=== PATIENT | female | born 1965 | race Caucasian/White ===

== ENCOUNTER 2021-02-05 14:15 | Emergency (ER) | payer OTHER ==
[~2021-02-05 14:15] MED LIST: FIORICET1 EACH PO; INDERAL LA80 MG PO; LOW-OGESTREL-21 EACH PO; MOTRIN600 MG PO; MULTIVITAMINS1 EAC1 PO; PAMELOR50 MG PO; PHENERGAN25 M1 PO; TOPAMAX50 MG PO; VALSARTAN-HCTZ1 EAC1 PO
[2021-02-05 18:52] LABS: BASOPHIL 0.5 % (0-2); EOSINOPHIL 1.9 % (0-5); HCT 40.6 % (37.0-47.0); HGB 13.1 g/dl (12.5-16.0); LYMPHOCYTE 45.8 % (15-48); MCH 31.6 pg (25.0-31.0); MCHC 32.3 g/dL (32.0-36.0); MCV 98.1 fL (78.0-100.0); MONOCYTE 7.5 % (0-12); MPV 9.8 fL (6.0-9.5); NEUTROPHIL 43.8 % (41-80); NRBC 0; PLT 290 K/uL (150-400); RBC 4.14 M/uL (4.20-5.40); WBC 8.6 K/uL (4.0-10.5)
[2021-02-05 18:58] LABS: BILIRUBIN NEGATIVE (NEGATIVE); BLOOD NEGATIVE Ery/uL (NEGATIVE); CLARITY CLEAR (CLEAR); COLOR YELLOW (YELLOW); GLUCOSE (U) NORMAL (NORMAL); LEUKOCYTES NEGATIVE Leu/uL (NEGATIVE); NITRITE NEGATIVE (NEGATIVE); PROTEIN NEGATIVE (NEGATIVE); UROBILINOGEN 0.2 mg/dL (0.2-1.0)
[2021-02-05 19:11] LABS: ALBUMIN 3.4 g/dL (3.4-5.0); BILIRUBIN - TOTAL 0.3 mg/dL (0.2-1.0); BUN/CREAT RATIO (CALC) 11.9 RATIO; CREATININE 0.84 mg/dL (0.51-0.95); GLOBULIN (CALCULATION) 4.1 g/dL; POTASSIUM 3.5 mmol/L (3.5-5.1); TOTAL PROTEIN 7.5 g/dL (6.4-8.2)
[2021-02-05 19:29] LABS: CORONAVIRUS 2019 SARS-COV-2 NEGATIVE (NEGATIVE); INFLUENZA A NAA NEGATIVE (NEGATIVE)
[2021-02-05] MEDS ORDERED: PHENERGAN25 M1 PO (21:14)
== END 2021-02-05 21:59 | disposition home or self-care (01) ==
LOC: FER 14:15
PROVIDERS: Internal Medicine
DX: B34.9 Viral infection, unspecified (principal); I10 Essential (primary) hypertension; Z87.891 Personal history of nicotine dependence; Z79.899 Other long term (current) drug therapy; Z20.822 Contact with and (suspected) exposure to COVID-19
CPT/HCPCS: 36415; 70450; 71045; 80053; 81003; 83690; 84484; 85025; 93005; 96372; J2765; J3030; J7030; U0002